=== PATIENT | female | born 1950 | race Caucasian/White ===

== ENCOUNTER 2025-11-12 10:44 | Outpatient (AMB) | payer MEDICARE, SELFPAY ==
--- NOTE | 2025-11-12 10:46 | MHC.OFFVIS ---
Vital Signs 11/12/25 10:54 Height 5 ft 4 in Weight 161 lb BMI 27.6 Intake Visit Reasons: Right knee pain and giving way Intake Note: Olivia is a 75 year old female who presents with complaints of progressively worsening right knee pain and giving way. The patient describes her pain as sharp in nature. Her pain has gotten worse over the last 6 months in spite of continued non operative treatments. She has tried modifying her gym routine which gave her minimal relief. Most of the pain is along the medial aspect of her knee. She has failed the last 6 weeks of conservative treatment which has included Tylenol, anti-inflammatory medicines, a home exercise program and physical therapy exercises. She states that her right knee will give out several times per day. At this point her right knee pain and mechanical symptoms are interfering with her activities of daily living and her ability to sleep well through the night. Allergies latex (LATEX) Allergy (Unknown, Unverified 08/06/20 16:56) REDNESS, ITCHING morphine Adverse Reaction (Severe, Verified 11/12/25 10:55) Swelling Medication List - Last Reconciled 11/12/25 by Black Hendricks MD atorvastatin (Lipitor) 20 mg PO DAILY hydrochlorothiazide 25 mg PO DAILY sertraline 100 mg PO DAILY Physical Exam Vital Signs: BMI result Body Mass Index 27.6 Const Other: Well-nourished well-developed very friendly female awake alert and oriented x3 in no acute distress Extrem Other: Right knee examination shows a minimal effusion, mild crepitus with range of motion, tenderness along her medial joint line, positive Rosemary's test, no instability Results Reviewed Results Reviewed: X-rays of the patient's right knee show mild diffuse joint space narrowing, no acute bony abnormalities Assessment & Plan Assessment & Plan (1) Right knee pain: Code(s): M25.561 - Pain in right knee Category: Medical (2) Tear of medial meniscus of right knee: Code(s): S83.241A - Other tear of medial meniscus, current injury, right knee, initial encounter Category: Medical Plan Ms. Payton presents with progressively worsening right knee pain and mechanical symptoms most likely due to a medial meniscus tear. Thus, I will send the patient for an MRI of her right knee for further evaluation. I will see her back once the MRI is completed to discuss the findings and treatment options. Feel free to call me at any time should questions regarding her orthopedic management arise. I spent 22 minutes in reviewing the patient's records and imaging studies, seeing the patient and documenting in the medical record. Orders: Orders MR knee RT wo con Today S83.241A - Other tear of medial meniscus, current injury, right knee, initial encounter Coding Level of Care Code New Pt Level 3 (81046) Add On Problem Visit Only Diagnoses Right knee pain M25.561 Tear of medial meniscus of right knee S83.241A
--- OUTSIDE RECORDS SUMMARY | 2025-11-12 10:46 | XMS_ITS | Clinical Summary ---
Author Organization [address] [facility] Address [address] [place] [address] Phone Care Team Providers Care Community Support Associate Name Role Phone Evan Garcia MD Primary Care Provider [phone] Allergies Active Allergy Reactions Criticality Noted Date Comments Morphine 08/04/2025 Medications aspirin 81 mg chewable tablet Chew 1 tablet (81 mg total) 1 (one) time each day. Active omeprazole OTC (PriLOSEC OTC) 20 mg EC tablet Take 1 tablet (20 mg total) by mouth 1 (one) time each day. Do not crush, chew, or split. Active atorvastatin (LIPITOR) 20 mg tablet Take 1 tablet (20 mg total) by mouth at bedtime. Active sertraline (ZOLOFT) 100 mg tablet Take by mouth 1 (one) time each day. Active hydroCHLOROthiaz deven (HYDRODIURIL) 25 mg tablet Take 1 tablet (25 mg total) by mouth 1 (one) time each day. Active Surgical History Surgery Date Site/Laterality Comments KNEE SURGERY 11/20/2009 Right PROCEDURE: HISTORICAL KNEE SURGERY; COMMENT: torn meniscus WRIST SURGERY 11/20/1999 Right PROCEDURE: HISTORICAL WRIST SURGERY; COMMENT: carpal tunnel BACK SURGERY PROCEDURE: HISTORICAL BACK SURGERY; COMMENT: L4-5 decompression, right epicondylectomy 2002(Dr Lujan) and left L4-5, left L5-S1 decompression April 2009(Dr Stack) TONSILLECTOMY PROCEDURE: HISTORICAL TONSILLECTOMY WISDOM TOOTH EXTRACTION PROCEDURE: HISTORICAL WISDOM TEETH EXTRACTION ELBOW SURGERY Right PROCEDURE: HISTORICAL ELBOW SURGERY Medical History Medical History Date Comments Hyperlipidemia 03/10/2015 DX:Hyperlipidemi a Anxiety 03/10/2015 DX:Anxiety GERD (gastroesophageal reflux disease) 5 DX:GERD (gastroesophageal reflux disease) Essential hypertension DX:Essent ial hypertension Family History Medical History Relation Name Comments Stroke Father HTN, Depression Coronary artery disease Mother DM, COPD, HTN, Uterine Cancer, Thyroid disorder Relation Name Status Comments Father Mother Social History Tobacco Use Types Packs/Day Years Used Date Smoking Tobacco: Former Cigarettes Smokeless Tobacco: Never Alcohol Use Standard Drinks/Week Comments Yes 0 (1 standard drink = 0.6 oz pur e alcohol) Comments Unknown Sex and Gender Information Value Date Recorded Sex Assigned at Not on file Legal Sex Female 8:54 PM EST Gender Identity Not on file Sexual Orientation Not on file Last Filed Vital Signs Vital Sign Reading Time Taken Comments Blood Pressure - - Pulse - - Temperature - - Respiratory Rate - - Oxygen Saturation - - Inhaled Oxygen Concentration - - Weight 74.8 kg (165 lb) 01/12/2024 2:16 PM EST Height 162.6 cm (5' 4 ) 01/12/2024 2:16 PM EST Body Mass Index 28.32 01/12/2024 2:16 PM EST Plan of Treatment Health Maintenance Due Date Last Done Comments DTaP,Tdap,and Td Vaccines (1 - Tdap) 1969 Pneumococcal Vaccine: 50+ Years (1 of 1 - PCV) 2000 Zoster Vaccines (1 of 2) 2000 Cholesterol Screening (Lipid Panel) 10/22/2022 Falls Risk Assessment 10/22/2022 Hepatitis C Screening 10/22/2022 Medicare Annual Wellness Visit 10/22/2022 Social Influencers of Health Screening 10/22/2022 Depression Screening 11/20/2024 COVID-19 Vaccine (1 - 2024-2 6 season) 2025 Influenza Vaccine (#1) 2025 RSV Immunization Adult Patients (1 - 1-dose 75+ series) 2025 Osteoporosis Screening (Bone Density Screening) 05/18/2033 05/18/2023 Colorectal Cancer Screening: Colonoscopy 08/05/2035 08/05/2025, 08/05/2025, 08/05/2025 HIB Vaccines Aged Out No longer eligi ble based on patient's age to complete this topic HPV Vaccines Aged Out No longer eligi ble based on patient's age to complete this topic Hepatitis A Vaccines Aged Out No long er eligible based on patient's age to complete this topic Hepatitis B Vaccines Aged Out No long er eligible based on patient's age to complete this topic IPV Vaccines Aged Out No longer eligi ble based on patient's age to complete this topic MMR Vaccines Aged Out No longer eligi ble based on patient's age to complete this topic Meningococcal ACWY Vaccine Aged Out N o longer eligible based on patient's age to complete this topic Meningococcal B Vaccine Aged Out No l onger eligible based on patient's age to complete this topic RSV Immunization Patients Under 20 months Aged Out No longer eligible b ased on patient's age to complete this topic Varicella Vaccines Aged Out No longer eligible based on patient's age to complete this topic Procedures Procedure Name Priority Date/Time Associated Diagnosis Comments COLONOSCOPY Routine 08/05/2025 10:05 AM EDT TONE DEXA AXIAL SKELETON Routine 05/18/2023 5:06 PM EDT Asymptomatic menopausal state from Last 3 Months or Most Recently Relevant to Health Maintenance Results * COLONOSCOPY (08/05/2025 10:05 AM EDT) Anatomical Region Laterality Modality Endoscopy us Historical Provider GI~PROCEDURE ORDERABLES F inal Result * TONE DEXA AXIAL SKELETON (05/18/2023 5:06 PM EDT) Anatomical Region Laterality Modality Mammography 05/18/2023 9:28 AM EDT Narrative 05/18/2023 5:06 PM EDT [facility] Diagnostic Imaging Department [address] [place], [place] [id number] Patient: PENNY SLAUGHTER Robin /Age/Sex: 1950 - 72 - F Unit#: [id number] [facility]Ordering Site[facility] Ordering Physician: EVAN GARCIA MD Tone Dexa Axial Skeleton - 05/18/2349 Report Status:Signed History: Low estrogen state due to menopause. Height loss. Comparison: 12/14/16 Findings: Bone densitometry is performed utilizing dual energy x-ray absorptiometry (DXA) in the [facility] unit. The lumbar spine and proximal femora are evaluated in the AP projection. The FRAX questionaire was completed. The results indicate low bone mass (osteopenia), with a right femoral neck T- score of -2.4. The Z score is -0.8, indicating bone mineral density within the range of normal for age. There have been statistically significant decreases in bone mineral density in the spine and right total femur since the previous study. The detailed DEXA report will be mailed to the referring physician's office. DualFemur FRAX: 10-year Probability of Fracture: Major Osteoporotic 14.7 percent Hip 3.9 percent. IMPRESSION: Osteopenia. [id number] Dictating Physician: ABA FREEMAN MD Electronically Signed by: ABA FREEMAN MD Dic Date/Time: 05/18/231704 Sign date/Time: 05/18/231705 Procedure Note Aba Freeman MD - 12/26/2023 [facility] Diagnostic Imaging Department [address] [place] [address] Patient: PENNY SLAUGHTER Robin /Age/Sex: 1950 - 72 - F Unit#: [id number] Location/Status: [facility]/REG CLI Mnemonic/Ordering Site: [facility] Ordering Physician: EVAN GARCIA MD Tone Dexa Axial Skeleton - 05/18/23 - 948 Report Status:Signed History: Low estrogen state due to menopause. Height loss. Comparison: 12/14/16 Findings: Bone densitometry is performed utilizing dual energy x-ray absorptiometry(DXA) in the [facility]. The lumbar spine and proximal femora areevaluated in the AP projection. The FRAX questionaire was completed. The results indicate low bone mass (osteopenia), with a right femoral neckT- score of -2.4. The Z score is -0.8, indicating bone mineral density withinthe range of normal for age. There have been statistically significant decreases in bone mineraldensity in the spine and right total femur since the previous study. The detailedDEXA report will be mailed to the referring physician's office. DualFemur FRAX: 10-year Probability of Fracture: Major Osteoporotic 14.7 percent Hip 3.9 percent. IMPRESSION: Osteopenia. [id number] Dictating Physician: ABA FREEMAN MD Electronically Signed by: ABA FREEMAN MD Dic Date/Time: 05/18/231704 Sign date/Time: 05/18/231705 Evan Garcia MD IMG BI PROCEDURES Final Resu lt from Last 3 Months or Most Recently Relevant to Health Maintenance Insurance MEDICARE [facility] Care Teams Community Support Associate Relationship Specialty Start Date End Date Evan Garcia MD [address] [place] [id number] PCP - General Internal Medicine 08/04/25
--- OUTSIDE RECORDS SUMMARY | 2025-11-12 10:46 | XMS_ITS | Patient Health Record ---
Author Organization [facility] Address [address] [place] [address] Care Team Providers Care Metallurgy Teacher Name Role Phone Lester Max MD Primary Care Provider Unavail able Luis Alberto Frederick Unavailable [phone] Allergies Allergen (clinical drug ingredient) Drug/Non Drug Allergy documented on EMR Reaction Allergy Type Onset Date Status Novocain palpatations Drug Allergy Acti ve Adhesive rash Allergy Active Latex Latex rash Allergy Active morphine Morphine anaphylaxis Drug Allergy Activ e Reason For Referral No Information Medications Medication SIG (Take, Route, Frequency, Duration) Notes Start Date End Date Status buPROPion HCl 150mg Active Zoloft 100 MG 1 tablet Orally Once a day; Duration: 30 day(s) Not-Taking Simvastatin 10 mg 1 tablet in the evening Orally Once a day; Duration: 30 day(s) Not-Taking Omeprazole 20 MG Orally Act trey hydroCHLOROthiazide 25 MG Orally Active Walking Boot/Pneumatic As directed Wear Daily; Duration: Until further notice 03/19/2018 Active Sertraline HCl 100 MG Orally Active Voltaren 1 % as directed Externally Active Voltaren 1 % as directed Transdermal apply bid to affected area; Duration: 30 days 05/22/2018 Active Nabumetone 750 MG as directed Orally Twice a day pc; Duration: 30 days 03/01/2018 Not-Taking Physical Therapy . . . 2-3x/week; Duration: 3-4 weeks Not-Taking Atorvastatin Calcium 20 MG Orally Active Gabapentin 300 MG 1 capsule before bedtime Orally Once a day hs; Duration: 10 days 03/01/2018 Not-Taking Social History Tobacco Use: Social History Observation Description Date Details (start date - stop date) Former Smoker NA - NA Tobacco Use/Smoking Question Answer Notes Are you a: former smoker Additional Findings: Tobacco Non-User Current no n-smoker Alcohol Screen Question Answer Notes Did you have a drink containing alcohol in the p ast year? Yes Points 0 Interpretation Negative Tobacco use other than smoking: Question Answer Notes Are you an other tobacco user? 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) Active confirmed Plan Of Treatment Pending Test Test Name Order Date X ray : Ankle, left 3V 05/02/2019 X ray : Foot, left 2V 03/19/2018 X ray : Foot, left 3V 03/30/2018 X ray : Foot, left 3V 04/27/2018 X ray : Foot, left 3V 09/07/2017 X ray : Foot, left 3V 09/19/2018 X ray : Foot, left 3V 10/20/2022 12670, [id number]/INJECT, JOINT/BURSA 1 12/26/2016 25714, [id number]/INJECT, JOINT/BURSA 1 19870, J0702- Neuroma/Injection 10/02/20 17 71072- Nail Unit Biopsy 05/22/2018 Insurance Providers Payer Name Payer Address Payer Phone Subscriber Number Group Number Insured Name Patient Relationship to Insured Coverage Start Date Coverage End Date Medicare National [employer] [address] [facility] [place] [address] [id number] Tata Olivia Self - patient is the insured 5 [employer] [address] [place] [address] [id number] Olivia Payton Self - patient is the insured Medical (General) History Medical History History ICD Code anxiety chicken pox measles mumps Reflux ( GERD) Depression Surgical History Surgery Date(Month/Year) back surgery 2000, 2008 R elbow sx hand/wrist knee surgery 2009 Salomon Bunionectomy L 03/15/18
--- OUTSIDE RECORDS SUMMARY | 2025-11-12 10:46 | XMS_ITS | Patient Health Record ---
Author Organization [facility] Address [address] [place] [address] Care Team Providers Care Lithographer Apprentice Name Role Phone EVAN GARCIA Primary Care Provider [phone] RICH RUTHERFORD Unavailable Allergies Allergen (clinical drug ingredient) Drug/Non Drug Allergy documented on EMR Reaction Allergy Type Onset Date Status morphine Morphine Unknown Drug Allergy Active Reason For Referral Reason Referral to the hand center for trigger finger patient will call make appointment Diagnosis 1 Trigger finger (acqu ired) (M65.30) Referral Organization [facility] Alexis abreu Referring Provider First Name EVAN Referring Provider Last Name RADHA Referring Provider Speciality Internal edicine Referral Priority Routine Reason 07/30/25 W APPT Refe rral to [facility] GI patient will call make appointment due for colonoscopy in December 2025 Diagnosis 1 Colon cancer screeni ng (Z12.11) Referral Organization [facility]is [facility]reu Referring Provider First Name EVAN Referring Provider Last Name RADHA Referring Provider Speciality Internal edicine Referred Provider MARTINEZ BAÑUELOS Referred Provider Specialty Gastroentero logy General Notes Meryl FITZPATRICK Admin 08/2025 11:33:46 AM > faxed medical referral, note and most recent labs to [phone] Referral Priority Routine Medications Medication SIG (Take, Route, Frequency, Duration) Notes Start Date End Date Status Aspirin 81 MG Tablet Delayed Release 1 tab(s) orally once a day Active Atorvastatin Calcium 20 MG Tablet 1 tablet Orally Once a day; Duration: 90 days takes it m,w,f Active Omeprazole 20 MG Capsule Delayed Release 1 cap(s) orally once a day Active hydroCHLOROthiazide 25 MG Tablet TAKE 1 TABLET EVERY DAY; Duration: 90 Active Sertraline HCl 100 MG Tablet TAKE 1 TABLET EVERY DAY; Duration: 90 Active Social History Tobacco Use: Social History Observation Description Date Details (start date - stop date) Former Smoker NA - NA Social History Tobacco Use: Social Info Question Answer Notes Smoking Are you a: former smoker Additional Details Category Social Info Options Details General Occupation: Retired alcohol use: yes 5 to 6 drinks pe r day drug use: no Coffee/Tea/Soda: yes Coffee 2 cups p er day Marital Status Living with smokers in household no Problems Problem Type SNOMED Code ICD Code Onset Dates Problem Status W/U Status Risk Notes Problem Shortness of breath (661186999) Shortness of breath (R06.02) Active confirmed Problem Gastro-esophagea l reflux disease without esophagitis (213956748) Gastro-esophagea l reflux disease without esophagitis (K21.9) Active confirmed Problem Essential hypertension (91682033) Essential (primary) hypertension (I10) Active confirmed Problem Chronic fatigue syndrome (disorder) (83497696) Chronic fatigue, unspecified (R53.82) Active confirmed Problem Disorder of lipoprotein storage and metabolism (disorder) (203565994) Disorder of lipoprotein metabolism, unspecified (E78.9) Active confirmed Problem Anxiety disorder (210307574) Anxiety disorder, unspecified (F41.9) Active confirmed Problem Skin sensation disturbance (14980060) Leg paresthesia (R20.2) Active confirmed Vital Signs Blood pressure diastolic 78 mm Hg 07/28/2025 Height 64 in 07/28/2025 Blood pressure systolic 124 mm Hg 07/28/2025 Weight 164 lbs 07/28/2025 BMI 28.15 kg/m2 07/28/2025 Encounters Encounter Location Date Provider Diagnosis [facility] [address] [place] [address] 01/28/2025 EVAN GARCIA Essential (primary) hypertension I10 ; Disorder of lipoprotein metabolism, unspecified E78.9 ; Gastro-esophageal reflux disease without esophagitis K21.9 ; Chronic fatigue, unspecified R53.82 ; Anxiety disorder, unspecified F41.9 ; History of osteopenia Z87.39 ; Trigger finger (acquired) M65.30 ; Encounter for screening mammogram for malignant neoplasm of breast Z12.31 and Deficiency of other specified B group vitamins E53.8 [facility] [address] [place] [phone] 07/28/2025 EVAN GARCIA Essential (primary) hypertension I10 ; Disorder of lipoprotein metabolism, unspecified E78.9 ; Gastro-esophageal reflux disease without esophagitis K21.9 ; Chronic fatigue, unspecified R53.82 ; Anxiety disorder, unspecified F41.9 ; Encounter for screening mammogram for malignant neoplasm of breast Z12.31 ; Colon cancer screening Z12.11 and Osteoporosis screening Z13.[address] [address] 01/24/2025 EVAN GARCIA [facility] [address] [place] [phone] 02/06/2025 RICH RUTHERFORD [address] [address] 01/30/2025 EVAN GARCIA [address] [address] 01/21/2025 EVAN GARCIA Encounter for screening mammogram for malignant neoplasm of breast Z12.[address] [address] 12/02/2024 EVAN GARCIA Assessments Encounter Date Diagnosis (ICD Code) Assessment Notes Treatment Notes Treatment Clinical Notes Section Notes 01/21/2025 Encounter for screening mammogram for malignant neoplasm of breast (ICD-10 - Z12.31) 01/28/2025 Essential (primary) hypertension (ICD-10 - I10) Blood pressure stable well-controlled no change in therapy check EKG normal sinus rhythm no change 01/28/2025 Disorder of lipoprotein metabolism, unspecified (ICD-10 - E78.9) Continue statin therapy check lipid profile follow-up in 6 months if at goal 07/28/2025 Essential (primary) hypertension (ICD-10 - I10) Blood pressure excellent control therefore no change in therapy no added salt diet try to walk 30 minutes a day keep weight optimal alcohol moderation 07/28/2025 Disorder of lipoprotein metabolism, unspecified (ICD-10 - E78.9) Continue statin therapy check lipid profile LDL goal less than 100 total cholesterol less than 200 07/28/2025 Gastro-esophagea l reflux disease without esophagitis (ICD-10 - K21.9) Stable doing well no symptoms dietary recommendations. B12 folic acid up-to-date continue PPI 01/28/2025 Gastro-esophagea l reflux disease without esophagitis (ICD-10 - K21.9) Continue PPI check B12 folic acid level 07/28/2025 Chronic fatigue, unspecified (ICD-10 - R53.82) Physical exam review of systems unchanged and normal 01/28/2025 Chronic fatigue, unspecified (ICD-10 - R53.82) Stable by physical exam check routine labs 01/28/2025 Anxiety disorder, unspecified (ICD-10 - F41.9) Stable continue sertraline doing well review systems negative for side effects 07/28/2025 Anxiety disorder, unspecified (ICD-10 - F41.9) Doing well continue sertraline at present dose no need to change dosing at the present time 07/28/2025 Encounter for screening mammogram for malignant neoplasm of breast (ICD-10 - Z12.31) Rx given to patient for mammography 01/28/2025 History of osteopenia (ICD-10 - Z87.39) Bone density up-to-date. Weightbearing exercise daily calcium 1200-day vitamin D 800 a day recommended 01/28/2025 Trigger finger (acquired) (ICD-10 - M65.30) Referral to hand center patient will call make appointment 07/28/2025 Colon cancer screening (ICD-10 - Z12.11) Referral placed to [facility] for colonoscopy next winter patient aware she will call make appointment 01/28/2025 Encounter for screening mammogram for malignant neoplasm of breast (ICD-10 - Z12.31) Rx given to patient for mammogram 07/28/2025 Osteoporosis screening (ICD-10 - Z13.820) Calcium 1200 today vitamin D 800 units a day. Rx given to patient for a bone density 01/28/2025 Deficiency of other specified B group vitamins (ICD-10 - E53.8) Plan Of Treatment Pending Test Test Name Order Date Mammogram Screening Bilatera l, Perform ultrasound guided aspiration and/or breast biopsy if warranted 07/28/2025 Mammogram Screening Bilatera l, Perform ultrasound guided aspiration and/or breast biopsy if warranted 01/21/2025 Bone Density 2 site DEXA 07/28/2025 Next Appt Details Provider Name:EVAN MCCORMACK, 02/24/2026 01:45:00 PM, [address] [facility], [place], [address], Insurance Providers Payer Name Payer Address Payer Phone Subscriber Number Group Number Insured Name Patient Relationship to Insured Coverage Start Date Coverage End Date MEDICARE [facility] [employer] [address] [place] [address] [id number] PENNY SLAUGHTER Self - patient is the insured 5 [employer] [address] [place] [address] [phone] [id number] PENNY SLAUGHTER Self - patient is the insured 5 Medical (General) History Medical History History ICD Code hypercholesteremia depression GERD pneumonia Hypertension Back surgery x2 History of carpal tunnel surgery Vaccination status COVID for shots. Flu shot q. year. Pneumovax x2. Tdap 2017. Zostavax done Chest x-ray January 2023 negative Mammogram December 2022 negative Bone density 2022 osteopenia Cardiac echo 2019 slight aor tic root sclerosis no significant valvular disease EF 65% question suggestion of mild decrease in diastolic compliance Stress echo January [address] Bañuelos 12/[address]. Bañuelos negativ e Nuclear stress test 2022 negative Chest x-ray -2022 Mammogram December 2023 normal MRI lumbar spine November moderate to severe degenerative spinal stenosis L3-L4 postsurgical changes L4-5 right L4 questionable pars defect Mammogram January 2025 negative Bone density April 2023 osteopenia Surgical History Surgery Date(Month/Year) torn meniscus right knee right carpal tunnel back surgery 2010 Right wrist and elbowTendonitis back surgery 2000
[2025-11-12 10:54] VITALS: BMI 27.6
== END 2025-11-12 11:56 | disposition home or self-care (01) ==
LOC: HO.HOS 10:44
PROVIDERS: PCP Internal Medicine; Visit Provider Orthopaedic Surgery
DX: M25.561 Pain in right knee (principal); S83.241A Other tear of medial meniscus, current injury, right knee, initial encounter
CPT/HCPCS: 99203; G2211

== ENCOUNTER → 2025-11-12 11:13 | Outpatient (BNV) | payer MEDICARE, SELFPAY | PROVIDERS: Visit Provider Radiology Diagnostic Ultrasound | DX: M17.11 Unilateral primary osteoarthritis, right knee (principal) | CPT/HCPCS: 73562 ==

== ENCOUNTER 2025-11-12 12:43 | Outpatient (REF) | payer MEDICARE, SELFPAY ==
--- NOTE | ~2025-11-12 | XR_ITS ---
EXAMINATION: XR KNEE, RIGHT CLINICAL INFORMATION: M25.561 - Pain in right knee COMPARISON: None available. TECHNIQUE: Four views of the right knee. FINDINGS: No fracture or joint effusion. Alignment is anatomic. Mild medial and patellofemoral compartment arthritis.. No abnormal soft tissue calcification. XR/XR knee RT 3V IMPRESSION: Mild arthritis, as above. Electronically signed by: Justin Fermin MD 11/14/2025 11:04 AM HATTIE
== END 2025-11-12 12:44 | disposition home or self-care (01) ==
LOC: HO.HOSX 12:43
PROVIDERS: Visit Provider Orthopaedic Surgery
DX: S83.241A Other tear of medial meniscus, current injury, right knee, initial encounter (principal); X58.XXXA Exposure to other specified factors, initial encounter
CPT/HCPCS: 73562; 99202